=== PATIENT | female | born 2000 | race Caucasian/White ===

== ENCOUNTER 2020-09-18 05:05 | Inpatient (IN) | payer BC ==
[~2020-09-18] VITALS: Ht 154.9 cm; Wt 74.8 kg
[2020-09-18] MEDS ORDERED: PRENATABS RX T1 EACH PO (05:55)
--- NOTE | 2020-09-18 13:10 | PR ---
[facility] [address] [facility] [place], [place] [address] Signed Progress Notes IP Datetime Report Generated by CPN: 09/18/2020 13:10 PROGRESS NOTES: [id number] Impression: Normal Progression of Labor Procedures: Sterile Vag Exam Plan: Continue Present Management VITAL SIGNS: [id number] Vital Signs: Reviewed; Within Normal Limits EXAM: [id number] Dilatation: 5.0 Effacement: 90 Station: -1 Contractions: Irregular MEMBRANES: [id number] Pooling: Negative Comments: Pt seen and examined. Comfortable w/ epidural. Will monitor progression of labor FETUS A: [id number] FHR Baseline: 125 Variability: Moderate 6-25bpm Accelerations: 15X15 Decelerations: None FHR Category: Category I Presentation: Vertex Comments on Fetus A: No evidence of metabolic acidosis FETUS B: [id number] Signing Physician: Galindo Tapia DO Copies: ~ *Electronically Signed* 09/18/20 1310 GALINDO TAPIA DO PATIENT NAME: KEV ORTA PROGRESS NOTE DATE OF : 98 PHYSICIAN: GALINDO TAPIA DO RPT #: [id number] REPORT IS CONFIDENTIAL AND NOT TO BE RELEASED WITHOUT AUTHORIZATION
--- NOTE | 2020-09-18 15:05 | PR ---
[facility] [address] [facility] [place], [place] [address] Signed Progress Notes IP Datetime Report Generated by CPN: 09/18/2020 15:05 PROGRESS NOTES: [id number] Impression: Normal Progression of Labor; Reassuring Heart Rate Procedures: Sterile Vag Exam Plan: Continue Present Management; Anticipate Vaginal Delivery Informed Consent Obtain: Vaginal Delivery VITAL SIGNS: [id number] Vital Signs: Reviewed; Within Normal Limits EXAM: [id number] Dilatation: 8.0 Effacement: 90 Station: 0 Contractions: Irregular MEMBRANES: [id number] Pooling: Negative Comments: Pt seen and examined. Doing well. C/O increased pelvic pressure. +bloody show. 8cm / 90. Anticipate . Reviewed anticipated course of remainder of labor. All questions answered FETUS A: [id number] FHR Baseline: 125 Variability: Moderate 6-25bpm Accelerations: 15X15 Decelerations: None FHR Category: Category I Presentation: Vertex Comments on Fetus A: No evidence of metabolic acidosis FETUS B: [id number] Signing Physician: Galindo Tapia DO Copies: ~ *Electronically Signed* 09/18/20 1507 GALINDO TAPIA DO PATIENT NAME: KEV ORTA PROGRESS NOTE DATE OF : 98 PHYSICIAN: GALINDO TAPIA DO RPT #: [id number] REPORT IS CONFIDENTIAL AND NOT TO BE RELEASED WITHOUT AUTHORIZATION
--- NOTE | 2020-09-18 20:24 | NUR ---
09/18/202023 Yasmin Caldwell 2016: PT BACK TO [facility] FROM OR. PT HOLDING TO CHEST WITH BRITTANY ALEMAN AT BEDSIDE. DR. DON IN ROOM ON ARRIVAL WITH FAMILY.
--- NOTE | 2020-09-19 05:53 | OR ---
[facility] [address] [facility] [place] [facility] [place], [place] [address] Signed DATE OF OPERATION: 09/18/2020 SURGEON: Galindo Tapia DO PREOPERATIVE DIAGNOSIS: Complex 4th degree perineal laceration. POSTOPERATIVE DIAGNOSIS: Complex 4th degree perineal laceration. PROCEDURES PERFORMED: Repair of 4th degree perineal laceration. ANESTHESIA: Epidural. ADVERTISING PHOTOGRAPHER: Susanne Sullivan DO. ESTIMATED BLOOD LOSS: 100 mL. FINDINGS: Normal clitoris, urethra, [place]'s and Bartholin's. No periurethral or vaginal sulcus lacerations. Complex 4th degree perineal laceration with complete disruption of the external anal sphincter, the anus detached from the surrounding tissue from 10 o'clock to 2 o'clock (clockwise) with excellent blood supply retained and laceration extending into the rectal mucosa approximately 4 cm from the anal verge. Excellent repair results at the end the procedure. COMPLICATIONS: None. INDICATIONS: Ms. Orta is a very pleasant 20-year-old G1, now P1, white female, who presented for elective induction of labor at 39 wks. Labor was uncomplicated and the patient pushed to deliver a viable female 7#5oz in the BE position with excellent control of descent. It was noted that she had a quite small perineal body and despite all best efforts to protect the perineum, the Electronically Signed By: GALINDO TAPIA DO 09/19/20 0553 PATIENT NAME: KEV ORTA OPERATIVE REPORT DATE OF : [birth year] REPORT #: [id number] PHYSICIAN: GALINDO TAPIA DO PCP: MARIA GONSALES DO REPORT IS CONFIDENTIAL AND NOT TO BE RELEASED WITHOUT AUTHORIZATION [facility] [address] [place], [place] [address] Signed patient unfortunately suffered a complex 4th degree perineal laceration. Given the complex nature and difficult visualization, it was decided to perform a repair in the operating theater with Dr. Sullivan assisting. Risks, benefits, and alternatives were discussed in detail with the patient. The patient understands and wished to proceed with the procedure. DESCRIPTION OF PROCEDURE: The patient was taken to the operating room. A time-out was performed to confirm correct patient, correct procedure. Epidural had been bolused and was found to be adequate. The patient was prepped and draped in a dorsal lithotomy position with feet in Yellofin stirrups. ICPs were on and running and no preoperative heparin was indicated. The patient did receive Ancef 2 g preoperatively. A Park catheter was inserted and attention was turned to the 4th degree laceration. The rectal mucosa was identified and was reapproximated with 3-0 Vicryl in a running nonlocked manner with careful attention to not enter the anal mucosa. Multiple rectal exams were performed during this layer repair to ensure no suture was noted inside the rectum. Once this layer was repaired, attention was then turned to repair of the internal anal sphincter which was reapproximated using 3-0 Vicryl in a running nonlocked manner. One small pumping vessel was noted on the patient's right side and made hemostatic with judicious use of Bovie electrocautery as well as suture ligation. Attention was then turned to repair of the anal verge. This was carefully reapproximated with very small delicate bites of 3-0 Vicryl in a running nonlocked manner. Excellent reapproximation of the anal verge was noted. Attention was then turned to repair of the external anal sphincter. The ends of the external anal sphincter were grasped with Allis clamps and excellent delineation of both ends of the external anal sphincter and capsule were identified. This was repaired in an end-to-end manner with 5 interrupted sutures of 2-0 Vicryl. Remainder of the perineal laceration was then repaired in a standard fashion using 3-0 chromic in a running manner with excellent hemostasis and reapproximation. A rectal exam was then performed at the end of procedure that demonstrated good sphincter tone and a well repaired rectovaginal septum with no suture material in the rectum. The patient was then taken to the PACU in good and stable condition. Sponge, needle, and instrument count were correct x2 at the end the procedure. Dr. Sullivan was present and participated in all portions of the procedure. Galindo Tapia DO JDW/MODL Electronically Signed By: GALINDO TAPIA DO 09/19/20 0553 PATIENT NAME: KEV ORTA OPERATIVE REPORT DATE OF : 98 REPORT #: [id number] PHYSICIAN: GALINDO TAPIA DO PCP: MARIA GONSALES DO REPORT IS CONFIDENTIAL AND NOT TO BE RELEASED WITHOUT AUTHORIZATION [address] [address] Signed /[id number] Copies: ~ Electronically Signed By: GALINDO TAPIA DO 09/19/20 0553 PATIENT NAME: KEV ORTA OPERATIVE REPORT DATE OF : [birth year] REPORT #: [id number] PHYSICIAN: GALINDO TAPIA DO PCP: MARIA GONSALES DO REPORT IS CONFIDENTIAL AND NOT TO BE RELEASED WITHOUT AUTHORIZATION
--- NOTE | 2020-09-20 12:09 | PR ---
[facility] [address] [facility] [place] [address] Signed PP Progress Notes Datetime Report Generated by CPN: 09/20/2020 12:09 SUBJECTIVE: [id number] Pain: Within Normal Limits Nausea/Vomiting: Denies Vital Signs: [id number] Vital Signs: Reviewed; Within Normal Limits Notable Details: PP Hgb/Hct = 10.4/32.4 EXAM: Ongoing Abdomen/Uterus: Normal Lochia: Normal Extremities: Normal IMPRESSION/PLAN/PROCEDURES: [id number] Impression: Normal Progression Plan: Discharge Procedures: None Progress Notes: Doing well, without complaint, wants to go home. Signing Physician: Cheri Serna MD Copies: ~ *Electronically Signed* 09/20/20 1209 CHERI SERNA MD PATIENT NAME: KEV ORTA PROGRESS NOTE DATE OF : 98 PHYSICIAN: CHERI SERNA MD RPT #: [id number] REPORT IS CONFIDENTIAL AND NOT TO BE RELEASED WITHOUT AUTHORIZATION
== END 2020-09-20 12:54 | disposition home or self-care (01) | DRG 768 ==
LOC: FBC 05:05
PROVIDERS: ADMIT Obstetrics & Gynecology; ATTEND Obstetrics & Gynecology
PROC: 0DQP0ZZ Repair Rectum, Open Approach (ICD-10-PCS; 2020-09-18)
PROC: 00HU33Z Insertion of Infusion Device into Spinal Canal, Percutaneous Approach (ICD-10-PCS; 2020-09-18)
PROC: 3E0R3BZ Introduction of Anesthetic Agent into Spinal Canal, Percutaneous Approach (ICD-10-PCS; 2020-09-18)
PROC: 10E0XZZ Delivery of Products of Conception, External Approach (ICD-10-PCS; principal; 2020-09-18 19:10)
DX: O70.3 Fourth degree perineal laceration during delivery (principal); Z37.0 Single live birth; Z3A.39 39 weeks gestation of pregnancy
CPT/HCPCS: 00940; 00942; 36415; 85027; A9270; J0690; J2001; J2250; J2795; J3010

== ENCOUNTER 2024-10-21 20:31 | Emergency (ER) | payer OTHER ==
[~2024-10-21] VITALS: Ht 152.4 cm; Wt 73.9 kg
[~2024-10-21 20:31] MED LIST: PRENATABS RX T1 EACH PO
[2024-10-21 21:26] LABS: BASOPHILS 0.3 % (0.1-1.2); EOSINOPHILS 0.5 % (0.7-5.8); LYMPHOCYTES 15.2 % (19.3-51.7); MCH 30.5 PG (25.6-32.2); MCHC 32.9 g/dL (32.2-35.5); MCV 92.7 fL (79.4-94.8); MONOCYTES 8.4 % (4.7-12.5); NEUTROPHILS 75.2 % (34.0-71.1); RBC 3.97 M/uL (3.93-5.22)
[2024-10-21] MEDS ORDERED: HYDROCODONE/ACETAMINOPHEN 60 ML HOME.PACK PO ONE (21:30)
[2024-10-21] MEDS ORDERED: LACTATED RINGER'S 1,000 ML IV ONE (21:30)
[2024-10-21 21:35] LABS: GLOMERULAR FILTRATION RATE,EST 109.0 mL/min (>60); UREA NITROGEN 5.0 mg/dL (7-18)
[2024-10-21] MEDS ORDERED: HYDROCODONE-ACE15 M3 PO (22:56)
[2024-10-21] MEDS ORDERED: DEXAMETHASONE SOD PHOS 10 MG/ML VIAL IV ONE (23:00)
[2024-10-21 23:13] VITALS: BP 119/82
== END 2024-10-21 23:14 | disposition home or self-care (01) ==
LOC: ED 20:31
PROVIDERS: Internal Medicine
DX: G89.18 Other acute postprocedural pain (principal); K08.89 Other specified disorders of teeth and supporting structures; Z98.818 Other dental procedure status
CPT/HCPCS: 36415; 80048; 85025; 96374; 99283-25; J1100; J7121